=== PATIENT | female | born 1980 | race Caucasian/White ===

== ENCOUNTER 2016-07-05 05:37 | Inpatient (IN) | payer OTHER ==
[~2016-07-05 05:37] MED LIST: Citric Acid/Sodium Citrate Solution 30 ML Cup PO ONE; Lactated Ringers 1,000 ML IV SCH; Metoclopramide 10 MG/2 ML SDV IVPUSH ONE; Sodium Chloride 0.9% 10 ML Syringe FLUSH PRN; ceFAZolin 2 GM in Premix Bag 1 BAG IV ONE
[2016-07-05] MEDS ORDERED: Citric Acid/Sodium Citrate Solution 30 ML Cup ONE (06:43)
[2016-07-05] MEDS ORDERED: Metoclopramide 10 MG/2 ML SDV ONE (06:43)
[2016-07-05] MEDS ORDERED: Oxytocin 10 Units/1 ML SDV ONE (06:45)
[2016-07-05] MEDS ORDERED: ceFAZolin 1 GM Vial ONE ×2 (06:45)
[2016-07-05] MEDS ORDERED: Lactated Ringers 1,000 ML ONE (06:46)
[2016-07-05] MEDS ORDERED: Morphine PF 10 MG/10 ML SDV ONE (06:46)
[2016-07-05] MEDS ORDERED: Bupivacaine 0.5% 30 ML SDV ONE (06:56)
--- NOTE | 2016-07-05 07:05 | HP ---
DATE OF ADMISSION: 07/05/2016 ADMISSION DIAGNOSIS: A 39 and 4/7th week intrauterine , history of previous section x2 with desire for repeat section. HISTORY OF PRESENT ILLNESS: The patient is a 35-year-old, 7, para 6-0-0-6 white female, with an ALEXA of 07/08/2016 was admitted for elective section - repeat. The patient has a history of 2 previous sections done in 2012 and 2010 preceded by 4 vaginal deliveries. Her last baby was 9 pounds 6 ounces. She, at this time, wishes to proceed with elective repeat section. The procedure, risks, benefits, potential complications, and alternatives to care, including attempt at were discussed in detail with patient. She appears to understand and wishes to proceed. MATERIALS DIRECTOR HISTORY: 7, para 6-0-0-6 with all 6 deliveries being born at term. Ranged in the weight from 7 pounds 3 ounces up to 9 pounds 6 ounces. Last 2 were sections with section last one being delivered by for breech presentation and last being delivered by because of repeat. The patient had 2 ultrasounds with this , the first ultrasound done 12/05/2015, it was the one at 10 and 2/7th weeks, which set her ALEXA at 07/08/2016. Second ultrasound done 02/15/2016 was supported with first ultrasound dating. The patient declined flu shot and Tdap. She declined genetic testing. She plans to nurse. She has hypothyroidism and is on replacement therapy. COURSE: The patient's first visit was on 02/15/2016 at 20 weeks gestational age. She has made good fundal height growth during the course of the . Her weight gain was from pregravid weight of 264 and body mass index is 45.2, up to 275 for a 21-pound weight gain. Her vital signs were not stable throughout the course. Fundal height growth was normal for size and gestational age. heart rate was 136. LABORATORY TESTING: In shows blood to be O positive with negative antibody screen. Platelet count at first visit were 330,000. She is rubella immune. RPR is nonreactive. Hepatitis B and HIV assays were negative. Chlamydia and gonorrhea assays negative. Hemoglobin was 12.3 in second-trimester and platelets were 300,000. One-hour GTT was elevated. Group B strep screen was positive. ALLERGIES: Morphine, which causes hallucinations and itching. CURRENT MEDICATIONS: 1. Nature-Throid 48.75 mg tablets per day. 2. vitamins 1 daily. 3. B12 100 mcg per day. 4. Vitamin D liquid. PAST MEDICAL HISTORY: Vaginal delivery x4. PAST SURGICAL HISTORY: x2. FAMILY HISTORY: Positive for paternal grandfather with colon cancer. Half brother with beta thalassemia. Half sister with nephrectomy. Father with diabetes and hypertension. Paternal grandfather is positive for heart disease. SOCIAL HISTORY: Patient is . is Anselmo Spear. They live in [place], [place]. She denies any significant amounts of alcohol, drugs, tobacco. She does not work outside the home. REVIEW OF SYSTEMS: SKIN: Negative. LUNGS: clear. CARDIOVASCULAR: No problems. BREASTS: Changes of . ABDOMEN/GI: Negative. : Findings associated with . EXTREMITIES and MUSCULOSKELETAL: Negative. NEUROLOGICAL: Normal. PHYSICAL EXAMINATION: VITAL SIGNS: Height is 5 feet 3 inches, pre weight is 264. Weight on last evaluation in clinic was 275 for an 11-pound weight gain. GENERAL: The patient is a well-developed, well-nourished, massively obese white female, in no acute distress. She is alert oriented x3, appears her stated age. SKIN: Warm, dry, without lesions. HEENT: Neck and back within normal limits. CARDIOVASCULAR: Shows regular rate and rhythm without murmurs. BREASTS: Deferred. ABDOMEN: Protuberant with , fundal height 38 cm. : Cervical exam shows to be soft on last evaluation in clinic, 1 cm 50% effaced, -4 station mid position. At this time, baby is felt to possibly be transverse by Todd maneuvers. EXTREMITIES: Show trace edema. Otherwise unremarkable. ASSESSMENT: 1. Term intrauterine at 39 and 4/7th weeks gestational age - elective repeat section. 2. The patient plans to nurse. 3. Has been on vitamins throughout the . PLAN: 1. Revealed repeat lower uterine segment transverse section through Pfannenstiel skin incision under spinal block. Procedure, risks, benefits, alternatives including attempt at , all discussed with the patient. She appears to understand, wishes to proceed and signed the consent. 2. DVT prophylaxis with SCDs. 3. Infection prophylaxis with Ancef 2 g IV preop. 4. Passport Support Manager to be in attendance. SACHI /[phone]
--- NOTE | 2016-07-05 07:06 | PCM.PREANE ---
Preanesthetic Assessment - Anesthesia/Transfusion/Family Hx Anesthesia History: Prior Anesthesia Without Reaction Family History of Anesthesia Reaction: No Transfusion History: No Prior Transfusion(s) - Review of Systems General: No Symptoms Pulmonary: No Symptoms Cardiovascular: No Symptoms Gastrointestinal: No symptoms Neurological: No Symptoms Other: Reports: Diabetes (gestational diabetes), Thyroid Problems - Physical Assessment NPO Status Date: 07/04/16 NPO Status Time: 21:00 O2 Sat by Pulse Oximetry: 99 Respiratory Rate: 16 Vital Signs: Last Vital Signs Temp 36.7 C 07/05/16 06:00 Pulse 76 07/05/16 06:00 Resp 16 07/05/16 06:00 BP 119/76 07/05/16 06:00 Pulse Ox 99 07/05/16 06:00 Height: 1.6 m Weight: 123.831 kg ASA Class: 2 Mental Status: Alert & Oriented x3 Airway Class: Mallampati = 1 Dentition: Reports: Normal Dentition ROM/Head Extension: Full Lungs: Clear to auscultation, Normal respiratory effort Cardiovascular: Regular Rate, Regular Rhythm - Allergies Allergies/Adverse Reactions: Allergies Allergy/AdvReac Type Severity Reaction Status Date / Time morphine Allergy Hallucinati Verified 07/05/16 03:32 ons - Acknowledgements Anesthesia Type Planned: Spinal Pt an Appropriate Candidate for the Planned Anesthesia: Yes Alternatives and Risks of Anesthesia Discussed w Pt/Guardian: Yes Pt/Guardian Understands and Agrees with Anesthesia Plan: Yes PreAnesthesia Questionnaire HEENT History: Reports: None, Sinusitis (hx of sinus surgery 6 years ago) Cardiovascular History: Reports: None Respiratory History: Reports: None Gastrointestinal History: Reports: None Genitourinary History: Reports: None ASSOCIATE APPLICATION DEVELOPER History: Reports: () Musculoskeletal History: Reports: None Neurological History: Reports: None Psychiatric History: Reports: None, Other (see below) Other Psychiatric History: HX of depression with third child Endocrine/Metabolic History: Reports: Diabetes, gestational, Hypothyroidism, Obesity/BMI 30+ Hematologic History: Reports: None Immunologic History: Reports: None Oncologic (Cancer) History: Reports: None Dermatologic History: Reports: None - Infectious Disease History Infectious Disease History: Reports: None - Past Surgical History Head Surgeries/Procedures: Reports: None HEENT Surgical History: Reports: None Cardiovascular Surgical History: Reports: None Respiratory Surgical History: Reports: None GI Surgical History: Reports: None Female Surgical History: Reports: None, section (x2 without comp) Male Surgical History: Reports: None Endocrine Surgical History: Reports: None Neurological Surgical History: Reports: None Musculoskeletal Surgical History: Reports: None Oncologic Surgical History: Reports: None Dermatological Surgical History: Reports: None Other Surgical History Comment: sinus surgery without comp - Past Imaging History Past Imaging History: Reports: None - SUBSTANCE USE Smoking Status *Q: Never Smoker Second Hand Smoke Exposure: No Recreational Drug Use History: No - CURRENT (IN HOUSE) MEDS Current Meds: Current Medications Lactated Ringer's (Ringers, Lactated) 1,000 mls @ 125 mls/hr IV ASDIRECTED JOSÉ MIGUEL Last Admin: 07/05/16 06:23 Dose: 125 mls/hr Sodium Chloride (Saline Flush) 10 ml FLUSH ASDIRECTED PRN PRN Reason: Keep Vein Open Discontinued Medications Cefazolin Sodium (Ancef) Confirm Administered Dose 1 gm .ROUTE .STK-MED ONE Stop: 07/05/16 06:46 Cefazolin Sodium (Ancef) Confirm Administered Dose 1 gm .ROUTE .STK-MED ONE Stop: 07/05/16 06:46 Citric Acid/Sodium Citrate (Bicitra Solution) 30 ml PO ONETIME ONE Stop: 07/05/16 03:19 Last Admin: 07/05/16 06:53 Dose: 30 ml Citric Acid/Sodium Citrate (Bicitra Solution) Confirm Administered Dose 30 ml .ROUTE .STK-MED ONE Stop: 07/05/16 06:44 Cefazolin Sodium/Dextrose 2 gm (/ Premix) 50 mls @ 100 mls/hr IV ONETIME ONE Stop: 07/05/16 03:47 Lactated Ringer's (Ringers, Lactated) Confirm Administered Dose 1,000 mls @ as directed .ROUTE .STK-MED ONE Stop: 07/05/16 06:47 Metoclopramide HCl (Reglan) 10 mg IVPUSH ONETIME ONE Stop: 07/05/16 03:19 Last Admin: 07/05/16 06:54 Dose: 10 mg Metoclopramide HCl (Reglan) Confirm Administered Dose 10 mg .ROUTE .STK-MED ONE Stop: 07/05/16 06:44 Morphine Sulfate (Duramorph Pf) Confirm Administered Dose 10 mg .ROUTE .STK-MED ONE Stop: 07/05/16 06:47 Oxytocin (Pitocin) Confirm Administered Dose 10 unit .ROUTE .STK-MED ONE Stop: 07/05/16 06:46
[2016-07-05] MEDS ORDERED: ePHEDrine/Normal Saline 25 MG/5 ML Syringe ONE (08:26)
--- NOTE | 2016-07-05 08:39 | PCM.POSTAN ---
POST ANESTHESIA ASSESSMENT - MENTAL STATUS Mental Status: alert, oriented - VITAL SIGNS Pulse Rate: 80 SaO2: 96 Resp Rate: 18 Blood Pressure: 115/63 Temperature: 97.0 C - RESPIRATORY Respiratory Status: respiratory rate WNL, airway patent, O2 saturation stable, supplemental oxygen - CARDIOVASCULAR CV Status: pulse rate WNL, blood pressure stable - GASTROINTESTINAL GI Status: no symptoms - POST OP HYDRATION Hydration Status: adequate & stable
[2016-07-05] MEDS ORDERED: ePHEDrine 50 MG/ML SDV IVPUSH PRN ×2 (08:41→09:03)
[2016-07-05] MEDS ORDERED: Ondansetron 4 MG/2 ML SDV IVPUSH PRN (08:41)
[2016-07-05] MEDS ORDERED: THYROID PORK 48.75 MG PO SCH (09:00)
[2016-07-05] MEDS ORDERED: Ondansetron 4 MG/2 ML SDV IV PRN (09:03)
[2016-07-05] MEDS ORDERED: diphenhydrAMINE 50 MG/ML SDV IVPUSH PRN (09:03)
[2016-07-05] MEDS ORDERED: Dextrose 5%-Lactated Ringers 1,000 ML IV SCH (09:03)
[2016-07-05] MEDS ORDERED: Lanolin 100% Cream 7 GM Tube TOP PRN (09:03)
[2016-07-05] MEDS ORDERED: Naloxone 0.4 MG/ML SDV IVPUSH PRN (09:03)
[2016-07-05] MEDS ORDERED: Dextrose 5%-0.45% NaCl 1,000 ML IV SCH (09:03)
[2016-07-05] MEDS: Prenatal Multivitamin with Calcium/Folic Acid/Iron Tab PO SCH (09:34)
[2016-07-05] MEDS: Simethicone 80 MG Tab.Chew PO SCH ×4 (09:34→21:51)
[2016-07-05] MEDS: Ibuprofen 800 MG Tab PO SCH ×2 (09:34→17:34)
[2016-07-05] MEDS ORDERED: HYDROmorphone 0.5 MG/0.5 ML Syringe IVPUSH PRN (09:45)
[2016-07-05] MEDS ORDERED: fentaNYL 100 MCG/2 ML SDV IVPUSH PRN (09:45)
[2016-07-05] MEDS ORDERED: Meperidine PF 50 MG/ML Syringe IVPUSH PRN (09:45)
--- NOTE | 2016-07-05 09:49 | PCM48HPAN ---
Post Anesthesia Note - EVALUATION WITHIN 48HRS OF ANESTHETIC Vital Signs in Normal Range: Yes Patient Participated in Evaluation: Yes Respiratory Function Stable: Yes Airway Patent: Yes Cardiovascular Function Stable: Yes Hydration Status Stable: Yes Pain Control Satisfactory: Yes (block receeding ) Nausea and Vomiting Control Satisfactory: Yes Mental Status Recovered: Yes
--- NOTE | 2016-07-05 10:12 | PCM.OPNOTE ---
- General Post-Op/Procedure Note Date of Surgery/Procedure: 07/05/16 Operative Procedure(s): Repeat lower uterine segment transverse section Pfannenstiel skin incision Findings: Uterus tubes and ovaries were consistent with a normal term . Amniotic fluid was clear. Baby is in vertex presentation. Nuchal cord was found to be loosely around the neck x1. Cervix is 2 cm dilated which is felt to be adequate to allow egress of blood. Pre Op Diagnosis: 39 week intrauterine , history previous section with desire for repeat. Post-Op Diagnosis: Same with delivery of a viable 6 lbs. 12 oz. female with Apgars of 8 and 9. Anesthesia Technique: Epidural Other Anesthesia Type: Marcaine 0.5%-20 cc locally in the incision site Primary Surgeon: Joel Ward Secondary Surgeon: Joel Wilkerson Anesthesia Provider: Monica Pablo Fluid Replacement, Intraop: 2,300 (Crystal) Output, Urine Amount: 100 EBL in mLs: 500 Drain/Tube Comments:: Indwelling bladder catheter Complications: None Condition: Good Free Text/Narrative:: Intake & Output 07/04/16 07/05/16 07/05/16 22:59 06:59 14:59 Intake Total 500 Output Total 200 Balance 300 Surgery duration: 23 minutes baby-born at 0806 hours, incision time 0804 hours Procedure: Patient was transferred the room and placed in a sitting position. Spinal anesthesia was administered. After adequate anesthesia patient was placed in a supine position with a wedge under her right side to facilitate left lateral positioning. The patient was prepped and draped in usual fashion after Higgins catheter was placed. The anesthetic was checked and found to be adequate. Marcaine 0.5%-20 cc was infiltrated into the section incision site. The Pfannenstiel skin incision was then made carried down to skin subcutaneous and fascial layers. The fascia was then undermined superiorly and inferiorly to allow for adequate operating room. The recti muscles were midline and preperitoneal fat was bluntly dissected. Peritoneal cavity was entered longitudinally. The vesicouterine peritoneum was then incised transversely and bladder flap was developed. Myometrium was incised transversely to the level of the amniotic sac. This incision was extended bilaterally in a blunt fashion. The amniotic sac was then ruptured with resulting clear amniotic fluid. A hand is placed into the lower uterine segment and the baby's head was brought forth through the incision. The baby was completely delivered using with fundal pressure in a routine fashion. The nose and mouth were bulb suctioned. Baby's cord was clamped x2 cut and baby was handed off to attending orthotics assistant Dr. Porras. Placenta was expressed after cord blood was obtained. Uterus was then exteriorized to allow for easier closure. The cervix was assessed and found to be dilated adequately to allow egress of blood. The uterus was closed in 2 layers. The first layer a running locked suture of 0 Monocryl, the second layer a running locked vertical mattress suture of 0 Monocryl. Hemostasis confirmed at this time. Sponge, instrument, needle counts are correct. The uterus was returned to the abdominal cavity and lateral gutters were cleared of blood. Once again sponge, needle counts are correct. The anterior abdominal wall was closed with a #1 PDS suture from angle to angle. The subcutaneous area was found to be free of any bleeders. Subcutaneous scarring was taken down with cautery area and Skin was closed with a running subcuticular stitch of 3-0 Monocryl in a vertical mattress suture fashion using a Morgan needle. It was further approximated with Prineo skin mesh/glue. It should be noted that patient received 2 g of Ancef preoperatively for infection prophylaxis and had Pitocin infused after delivery of the placenta to facilitate uterine contraction. She also had sequential compression stockings in place for DVT prophylaxis.
[2016-07-05] MEDS: Acetaminophen/oxyCODONE 325-5 MG Tab PO PRN ×3 (11:23→22:42)
[2016-07-06] MEDS: Ibuprofen 800 MG Tab PO SCH ×3 (00:51→17:57)
[2016-07-06] MEDS: Acetaminophen/oxyCODONE 325-5 MG Tab PO PRN ×3 (06:06→20:11)
[2016-07-06] MEDS: THYROID PORK 48.75 MG PO SCH (06:08)
--- NOTE | 2016-07-06 08:25 | PCM.SN ---
- Free Text/Narrative Note: POD#1 Afebrile, no heavy vaginal bleeding, incision normal, no leg cramping or pain.
[2016-07-06] MEDS: Simethicone 80 MG Tab.Chew PO SCH ×3 (09:13→17:56)
[2016-07-06] MEDS: Prenatal Multivitamin with Calcium/Folic Acid/Iron Tab PO SCH (09:13)
[2016-07-06] MEDS: Docusate Sodium 100 MG Cap PO PRN (09:16)
--- NOTE | 2016-07-06 14:02 | PCM48HPAN ---
Post Anesthesia Note - EVALUATION WITHIN 48HRS OF ANESTHETIC Vital Signs in Normal Range: Yes Patient Participated in Evaluation: Yes Respiratory Function Stable: Yes Airway Patent: Yes Cardiovascular Function Stable: Yes Hydration Status Stable: Yes Pain Control Satisfactory: Yes Nausea and Vomiting Control Satisfactory: Yes Mental Status Recovered: Yes
[2016-07-07] MEDS: Simethicone 80 MG Tab.Chew PO SCH ×3 (02:53→11:57)
[2016-07-07] MEDS: Ibuprofen 800 MG Tab PO SCH ×2 (02:54→09:17)
[2016-07-07] MEDS: Acetaminophen/oxyCODONE 325-5 MG Tab PO PRN ×2 (02:57→11:57)
[2016-07-07] MEDS: THYROID PORK 48.75 MG PO SCH (06:01)
[2016-07-07] MEDS: Docusate Sodium 100 MG Cap PO PRN (06:01)
[2016-07-07] MEDS: Prenatal Multivitamin with Calcium/Folic Acid/Iron Tab PO SCH (09:17)
--- NOTE | 2016-07-07 09:56 | PCM.DCSUM1 ---
Discharge Summary - Hospital Course Free Text/Narrative:: [facility] Post-Op/Procedure Note Patient Name: PETTY LLOYD Date of : 80 Patient Status: Inpatient Attending Provider: Joel Ward Date: 07/05/16 10:02 Initialization Date: 07/05/16 10:02 - General Post-Op/Procedure Note Date of Surgery/Procedure: 07/05/16 Operative Procedure(s): Repeat lower uterine segment transverse section Pfannenstiel skin incision Findings: Uterus tubes and ovaries were consistent with a normal term . Amniotic fluid was clear. Baby is in vertex presentation. Nuchal cord was found to be loosely around the neck x1. Cervix is 2 cm dilated which is felt to be adequate to allow egress of blood. Pre Op Diagnosis: 39 week intrauterine , history previous section with desire for repeat. Post-Op Diagnosis: Same with delivery of a viable 6 lbs. 12 oz. female with Apgars of 8 and 9. Anesthesia Technique: Epidural Other Anesthesia Type: Marcaine 0.5%-20 cc locally in the incision site Primary Surgeon: Joel Ward Secondary Surgeon: Joel Wilkerson Anesthesia Provider: Monica Pablo Fluid Replacement, Intraop: 2,300 (Crystal) Output, Urine Amount: 100 EBL in mLs: 500 Drain/Tube Comments:: Indwelling bladder catheter Complications: None Condition: Good Free Text/Narrative:: Intake & Output 07/04/16 07/05/16 07/05/16 22:59 06:59 14:59 Intake Total 500 Output Total 200 Balance 300 Surgery duration: 23 minutes baby-born at 0806 hours, incision time 0804 hours Procedure: Patient was transferred the room and placed in a sitting position. Spinal anesthesia was administered. After adequate anesthesia patient was placed in a supine position with a wedge under her right side to facilitate left lateral positioning. The patient was prepped and draped in usual fashion after Higgins catheter was placed. The anesthetic was checked and found to be adequate. Marcaine 0.5%-20 cc was infiltrated into the section incision site. The Pfannenstiel skin incision was then made carried down to skin subcutaneous and fascial layers. The fascia was then undermined superiorly and inferiorly to allow for adequate operating room. The recti muscles were midline and preperitoneal fat was bluntly dissected. Peritoneal cavity was entered longitudinally. The vesicouterine peritoneum was then incised transversely and bladder flap was developed. Myometrium was incised transversely to the level of the amniotic sac. This incision was extended bilaterally in a blunt fashion. The amniotic sac was then ruptured with resulting clear amniotic fluid. A hand is placed into the lower uterine segment and the baby's head was brought forth through the incision. The baby was completely delivered using with fundal pressure in a routine fashion. The nose and mouth were bulb suctioned. Baby's cord was clamped x2 cut and baby was handed off to attending casting assistant Dr. Porras. Placenta was expressed after cord blood was obtained. Uterus was then exteriorized to allow for easier closure. The cervix was assessed and found to be dilated adequately to allow egress of blood. The uterus was closed in 2 layers. The first layer a running locked suture of 0 Monocryl, the second layer a running locked vertical mattress suture of 0 Monocryl. Hemostasis confirmed at this time. Sponge, instrument, needle counts are correct. The uterus was returned to the abdominal cavity and lateral gutters were cleared of blood. Once again sponge, needle counts are correct. The anterior abdominal wall was closed with a #1 PDS suture from angle to angle. The subcutaneous area was found to be free of any bleeders. Subcutaneous scarring was taken down with cautery area and Skin was closed with a running subcuticular stitch of 3-0 Monocryl in a vertical mattress suture fashion using a Morgan needle. It was further approximated with Prineo skin mesh/glue. It should be noted that patient received 2 g of Ancef preoperatively for infection prophylaxis and had Pitocin infused after delivery of the placenta to facilitate uterine contraction. She also had sequential compression stockings in place for DVT prophylaxis. HPI Initial Comments: [facility] Post-Op/Procedure Note Patient Name: PETTY LLOYD Date of : 80 Patient Status: Inpatient Attending Provider: Joel Ward Date: 07/05/16 10:02 Initialization Date: 07/05/16 10:02 - General Post-Op/Procedure Note Date of Surgery/Procedure: 07/05/16 Operative Procedure(s): Repeat lower uterine segment transverse section Pfannenstiel skin incision Findings: Uterus tubes and ovaries were consistent with a normal term . Amniotic fluid was clear. Baby is in vertex presentation. Nuchal cord was found to be loosely around the neck x1. Cervix is 2 cm dilated which is felt to be adequate to allow egress of blood. Pre Op Diagnosis: 39 week intrauterine , history previous section with desire for repeat. Post-Op Diagnosis: Same with delivery of a viable 6 lbs. 12 oz. female infant with Apgars of 8 and 9. Anesthesia Technique: Epidural Other Anesthesia Type: Marcaine 0.5%-20 cc locally in the incision site Primary Surgeon: Jeol Ward Secondary Surgeon: Joel Wilkerson Anesthesia Provider: Monica Pablo Fluid Replacement, Intraop: 2,300 (Crystal) Output, Urine Amount: 100 EBL in mLs: 500 Drain/Tube Comments:: Indwelling bladder catheter Complications: None Condition: Good Free Text/Narrative:: Intake & Output 07/04/16 07/05/16 07/05/16 22:59 06:59 14:59 Intake Total 500 Output Total 200 Balance 300 Surgery duration: 23 minutes baby-born at 0806 hours, incision time 0804 hours Procedure: Patient was transferred the room and placed in a sitting position. Spinal anesthesia was administered. After adequate anesthesia patient was placed in a supine position with a wedge under her right side to facilitate left lateral positioning. The patient was prepped and draped in usual fashion after Higgins catheter was placed. The anesthetic was checked and found to be adequate. Marcaine 0.5%-20 cc was infiltrated into the section incision site. The Pfannenstiel skin incision was then made carried down to skin subcutaneous and fascial layers. The fascia was then undermined superiorly and inferiorly to allow for adequate operating room. The recti muscles were midline and preperitoneal fat was bluntly dissected. Peritoneal cavity was entered longitudinally. The vesicouterine peritoneum was then incised transversely and bladder flap was developed. Myometrium was incised transversely to the level of the amniotic sac. This incision was extended bilaterally in a blunt fashion. The amniotic sac was then ruptured with resulting clear amniotic fluid. A hand is placed into the lower uterine segment and the baby's head was brought forth through the incision. The baby was completely delivered using with fundal pressure in a routine fashion. The nose and mouth were bulb suctioned. Baby's cord was clamped x2 cut and baby was handed off to attending casting assistant Dr. Porras. Placenta was expressed after cord blood was obtained. Uterus was then exteriorized to allow for easier closure. The cervix was assessed and found to be dilated adequately to allow egress of blood. The uterus was closed in 2 layers. The first layer a running locked suture of 0 Monocryl, the second layer a running locked vertical mattress suture of 0 Monocryl. Hemostasis confirmed at this time. Sponge, instrument, needle counts are correct. The uterus was returned to the abdominal cavity and lateral gutters were cleared of blood. Once again sponge, needle counts are correct. The anterior abdominal wall was closed with a #1 PDS suture from angle to angle. The subcutaneous area was found to be free of any bleeders. Subcutaneous scarring was taken down with cautery area and Skin was closed with a running subcuticular stitch of 3-0 Monocryl in a vertical mattress suture fashion using a Morgan needle. It was further approximated with Prineo skin mesh/glue. It should be noted that patient received 2 g of Ancef preoperatively for infection prophylaxis and had Pitocin infused after delivery of the placenta to facilitate uterine contraction. She also had sequential compression stockings in place for DVT prophylaxis. Brief History: [facility] . Post-Op/Procedure Note. [id number]. Date of : Patient Status: Inpatient. Attending Provider: Joel Ward FAccount Number: [id number]. Date: 07/05/16 10:02Initialization Date: 07/05/16 10:02. - General Post-Op/Procedure Note. Date of Surgery/Procedure: 07/05/16. Operative Procedure(s): Repeat lower uterine segment transverse section Pfannenstiel skin incision. Findings: Uterus tubes and ovaries were consistent with a normal term . Amniotic fluid was clear. Baby is in vertex presentation. Nuchal cord was found to be loosely around the neck x1. Cervix is 2 cm dilated which is felt to be adequate to allow egress of blood. Pre Op Diagnosis: 39 week intrauterine , history previous section with desire for repeat. Post-Op Diagnosis: Same with delivery of a viable 6 lbs. 12 oz. female with Apgars of 8 and 9. Anesthesia Technique : Epidural. Other Anesthesia Type: Marcaine 0.5%-20 cc locally in the incision site. Primary Surgeon: Joel Ward. Secondary Surgeon: Joel Wilkerson. Anesthesia Provider: Monica Pablo. Fluid Replacement, Intraop: 2,300 (Crystal) . Output, Urine Amount: 100. EBL in mLs: 500. Drain/Tube Comments:: Indwelling bladder catheter. Complications: None. Condition: Good. Free Text/ Narrative:: Intake & Output. 07/05/1703/. [id number]. Intake [id number]. Output [id number]. [id number]. Surgery duration: 23 minutes baby-born at 0806 hours, incision time 0804 hours. Procedure: Patient was transferred the room and placed in a sitting position. Spinal anesthesia was administered. After adequate anesthesia patient was placed in a supine position with a wedge under her right side to facilitate left lateral positioning. The patient was prepped and draped in usual fashion after Higgins catheter was placed. The anesthetic was checked and found to be adequate. Marcaine 0.5%-20 cc was infiltrated into the section incision site. The Pfannenstiel skin incision was then made carried down to skin subcutaneous and fascial layers. The fascia was then undermined superiorly and inferiorly to allow for adequate operating room. The recti muscles were midline and preperitoneal fat was bluntly dissected. Peritoneal cavity was entered longitudinally. The vesicouterine peritoneum was then incised transversely and bladder flap was developed. Myometrium was incised transversely to the level of the amniotic sac. This incision was extended bilaterally in a blunt fashion. The amniotic sac was then ruptured with resulting clear amniotic fluid. A hand is placed into the lower uterine segment and the baby's head was brought forth through the incision. The baby was completely delivered using with fundal pressure in a routine fashion. The nose and mouth were bulb suctioned. Baby's cord was clamped x2 cut and baby was handed off to attending casting assistant Dr. Porras. Placenta was expressed after cord blood was obtained. Uterus was then exteriorized to allow for easier closure. The cervix was assessed and found to be dilated adequately to allow egress of blood. The uterus was closed in 2 layers. The first layer a running locked suture of 0 Monocryl, the second layer a running locked vertical mattress suture of 0 Monocryl. Hemostasis confirmed at this time. Sponge, instrument, needle counts are correct. The uterus was returned to the abdominal cavity and lateral gutters were cleared of blood. Once again sponge, needle counts are correct. The anterior abdominal wall was closed with a #1 PDS suture from angle to angle. The subcutaneous area was found to be free of any bleeders. Subcutaneous scarring was taken down with cautery area and Skin was closed with a running subcuticular stitch of 3-0 Monocryl in a vertical mattress suture fashion using a Morgan needle. It was further approximated with Prineo skin mesh/glue. It should be noted that patient received 2 g of Ancef preoperatively for infection prophylaxis and had Pitocin infused after delivery of the placenta to facilitate uterine contraction. She also had sequential compression stockings in place for DVT prophylaxis. - Discharge Data Discharge Date: 07/07/16 Discharge Disposition: Home, Self-Care 01 Condition: Good - Discharge Diagnosis/Problem(s) (1) 39 weeks gestation of SNOMED Code(s): 72379955 ICD Code: Z3A.39 - 39 WEEKS GESTATION OF Status: Acute Current Visit: Yes (2) delivery, delivered, current hospitalization SNOMED Code(s): 215403065 ICD Code: O82 - ENCOUNTER FOR DELIVERY WITHOUT INDICATION Status: Acute Current Visit: Yes - Patient Summary/Data Operative Procedure(s) Performed: Repeat lower uterine segment transverse section Pfannenstiel skin incision Complications: none Consults: none Hospital Course: uneventful - Patient Instructions Diet: Heart Healthy Diet Driving: Do Not Drive (48 hrs) Showering/Bathing: May Shower, No Tub Bathing/Swimming (x6 weeks) Wound/Incision Care: Keep Operative Site/Wound Site Clean and Dry Notify Provider of: Fever, Increased Pain, Swelling and Redness, Drainage, Nausea and/or Vomiting - Discharge Plan Prescriptions/Med Rec: Acetaminophen/oxyCODONE [Percocet 325-5 MG] 1 tab PO Q6H PRN #30 tablet PRN Reason: Pain Ibuprofen [IJD: Ibuprofen] 600 mg PO Q6H #50 tablet Home Medications: Home Meds B12/Levomefolate Calcium/B-6 [Folbic Rf Tablet] 1 each PO DAILY 07/05/16 [ History] Cholecalciferol (Vitamin D3) [Vitamin D] 10,000 unit PO DAILY 07/05/16 [History] Vit #108/Iron/FA [ One Tablet] 1 each PO DAILY 07/05/16 [ History] Thyroid,Pork [Nature-Throid] 48.75 mg PO DAILY 07/05/16 [History] Acetaminophen/oxyCODONE [Percocet 325-5 MG] 1 tab PO Q6H PRN #30 tablet [Rx] Ibuprofen [IJD: Ibuprofen] 600 mg PO Q6H #50 tablet 07/07/16 [Rx] Referrals: Joel Ward MD [Physician] - (4 weeks) - Discharge Summary/Plan Comment DC Time >30 min.: No - Patient Data Vitals - Most Recent: Last Vital Signs Temp 98.2 F 07/07/16 03:02 Pulse 92 07/07/16 03:02 Resp 16 07/07/16 03:02 BP 124/84 07/07/16 03:02 Pulse Ox 97 07/07/16 03:02 Weight - Most Recent: 273 lb Med Orders - Current: Current Medications Diphenhydramine HCl (Benadryl) 25 mg IVPUSH Q6H PRN PRN Reason: Itching or Nausea Docusate Sodium (Colace) 100 mg PO Q12H PRN PRN Reason: Constipation Last Admin: 07/07/16 06:01 Dose: 100 mg Emollient Ointment (Lansinoh Hpa) 0 gm TOP ASDIRECTED PRN PRN Reason: Sore Nipples Last Admin: 07/06/16 18:00 Dose: 1 applic Ephedrine Sulfate (Ephedrine Sulfate) 5 mg IVPUSH SEECOMMENT PRN PRN Reason: Other Dextrose/Sodium Chloride (Dextrose 5%-1/2 Ns) 1,000 mls @ 125 mls/hr IV ASDIRECTED JOSÉ MIGUEL Last Admin: 07/05/16 20:21 Dose: 125 mls/hr Ibuprofen (Motrin) 800 mg PO Q8H JOSÉ MIGUEL Last Admin: 07/07/16 09:17 Dose: 800 mg Naloxone HCl (Narcan) 0.1 mg IVPUSH SEECOMMENT PRN PRN Reason: Respiratory Depression Ondansetron HCl (Zofran) 4 mg IV Q4H PRN PRN Reason: Nausea/Vomiting Oxycodone/Acetaminophen (Percocet 325-5 Mg) 2 tab PO Q4H PRN PRN Reason: Pain (moderate 4-6) Last Admin: 07/07/16 02:57 Dose: 2 tab Thyroid,Pork [Nature (-Throid] 48.75 Mg) 0 each PO ACBREAKFAST [facility] Last Admin: 07/07/16 06:01 Dose: 1 each Prenat Multivit/Aligner/Iron/Folic Ac ( Plus Iron) 1 each PO DAILY [facility] Last Admin: 07/07/16 09:17 Dose: 1 each Simethicone (Simethicone) 80 mg PO PCBED [facility] Last Admin: 07/07/16 09:17 Dose: 80 mg Discontinued Medications Bupivacaine HCl (Marcaine 0.5%) Confirm Administered Dose 30 ml .ROUTE .STK-MED ONE Stop: 07/05/16 06:57 Last Admin: 07/05/16 08:02 Dose: 20 ml Cefazolin Sodium (Ancef) Confirm Administered Dose 1 gm .ROUTE .STK-MED ONE Stop: 07/05/16 06:46 Cefazolin Sodium (Ancef) Confirm Administered Dose 1 gm .ROUTE .STK-MED ONE Stop: 07/05/16 06:46 Citric Acid/Sodium Citrate (Bicitra Solution) 30 ml PO ONETIME ONE Stop: 07/05/16 03:19 Last Admin: 07/05/16 06:53 Dose: 30 ml Citric Acid/Sodium Citrate (Bicitra Solution) Confirm Administered Dose 30 ml .ROUTE .STK-MED ONE Stop: 07/05/16 06:44 Last Admin: 07/05/16 07:01 Dose: Not Given Ephedrine Sulfate (Ephedrine In Ns) Confirm Administered Dose 25 mg .ROUTE .STK- MED ONE Stop: 07/05/16 08:27 Ephedrine Sulfate (Ephedrine Sulfate) 5 mg IVPUSH ASDIRECTED PRN PRN Reason: Hypotension Stop: 07/05/16 16:00 Fentanyl (Sublimaze) 50 mcg IVPUSH Q5M PRN PRN Reason: Pain Stop: 07/05/16 10:01 Hydromorphone HCl (Dilaudid) 0.5 mg IVPUSH Q15M PRN PRN Reason: severe pain Stop: 07/05/16 10:01 Last Admin: 07/05/16 10:05 Dose: 0.5 mg Lactated Ringer's (Ringers, Lactated) 1,000 mls @ 125 mls/hr IV ASDIRECTED JOSÉ MIGUEL Last Admin: 07/05/16 06:23 Dose: 125 mls/hr Cefazolin Sodium/Dextrose 2 gm (/ Premix) 50 mls @ 100 mls/hr IV ONETIME ONE Stop: 07/05/16 03:47 Last Admin: 07/06/16 18:16 Dose: Not Given Lactated Ringer's (Ringers, Lactated) Confirm Administered Dose 1,000 mls @ as directed .ROUTE .STK-MED ONE Stop: 07/05/16 06:47 Dextrose/Lactated Ringer's (Dextrose 5%-Lactated Ringers) 1,000 mls @ 125 mls/ hr IV ASDIRECTED JOSÉ MIGUEL Stop: 07/05/16 17:02 Last Admin: 07/05/16 11:05 Dose: 125 mls/hr Meperidine HCl (Demerol) 12.5 mg IVPUSH ASDIRECTED PRN PRN Reason: Shivering Stop: 07/06/16 09:46 Metoclopramide HCl (Reglan) 10 mg IVPUSH ONETIME ONE Stop: 07/05/16 03:19 Last Admin: 07/05/16 06:54 Dose: 10 mg Metoclopramide HCl (Reglan) Confirm Administered Dose 10 mg .ROUTE .STK-MED ONE Stop: 07/05/16 06:44 Last Admin: 07/05/16 07:01 Dose: Not Given Morphine Sulfate (Duramorph Pf) Confirm Administered Dose 10 mg .ROUTE .STK-MED ONE Stop: 07/05/16 06:47 Ondansetron HCl (Zofran) 4 mg IVPUSH ONETIME PRN PRN Reason: Nausea/Vomiting Stop: 07/05/16 18:00 Oxytocin (Pitocin) Confirm Administered Dose 10 unit .ROUTE .STK-MED ONE Stop: 07/05/16 06:46 Thyroid,Pork [Nature (-Throid] 48.75 Mg) 0 each PO DAILY JOSÉ MIGUEL Last Admin: 07/05/16 09:44 Dose: Not Given Sodium Chloride (Saline Flush) 10 ml FLUSH ASDIRECTED PRN PRN Reason: Keep Vein Open *Q Meaningful Use (DIS) - VTE *Q VTE Criteria *Q: - Stroke *Q Stroke Criteria *Q: - AMI *Q AMI Criteria *Q:
[2016-07-07 12:57] VITALS: BP 108/69
== END 2016-07-07 13:15 | disposition home or self-care (01) | DRG 766 ==
LOC: JD.OB 05:37 → UNDOADMIN 05:37
PROVIDERS: ADMIT Obstetrics & Gynecology; ATTEND Obstetrics & Gynecology
PROC: 10D00Z1 Extraction of Products of Conception, Low, Open Approach (ICD-10-PCS; principal; 2016-07-05)
DX: O34.211 Maternal care for low transverse scar from previous cesarean delivery (principal); N85.8 Other specified noninflammatory disorders of uterus; O99.824 Streptococcus B carrier state complicating childbirth; O69.81X0 Labor and delivery complicated by cord around neck, without compression, not applicable or unspecified; Z3A.40 40 weeks gestation of pregnancy; Z37.0 Single live birth
CPT/HCPCS: 01961; 36415; 85025; A9270-GY; J0690; J1170; J2270; J2590; J2765; J7042; J7050; J7120

== ENCOUNTER 2018-11-13 05:27 | Inpatient (IN) | payer BC ==
[2018-11-13] MEDS: Lactated Ringers 1,000 ML IV SCH ×2 (06:00→06:59)
[2018-11-13] MEDS ORDERED: Metoclopramide 10 MG/2 ML SDV IVPUSH ONE (06:19)
[2018-11-13] MEDS ORDERED: Sodium Chloride 0.9% 10 ML Syringe FLUSH PRN (06:19)
[2018-11-13] MEDS ORDERED: ceFAZolin 2 GM in Premix Bag 1 BAG IV ONE (06:19)
[2018-11-13] MEDS ORDERED: Nalbuphine 10 MG/1 ML Vial IVPUSH PRN (06:19)
[2018-11-13] MEDS ORDERED: Citric Acid/Sodium Citrate Solution 30 ML Cup PO ONE (06:19)
[2018-11-13] MEDS ORDERED: ceFAZolin 1 GM in Premix Bag 1 BAG IV ONE (06:19)
[2018-11-13] MEDS ORDERED: Oxytocin/Lactated Ringers 10 UNIT/1,000 ML BAG IV SCH (06:30)
[2018-11-13] MEDS ORDERED: Bupivacaine 0.5% 30 ML SDV ONE (07:15)
--- NOTE | 2018-11-13 08:00 | PCM.PREANE ---
Preanesthetic Assessment - Anesthesia/Transfusion/Family Hx Anesthesia History: Prior Anesthesia Without Reaction Family History of Anesthesia Reaction: No Transfusion History: No Prior Transfusion(s) - Review of Systems General: No Symptoms, Other (morbid obesity) Pulmonary: No Symptoms Cardiovascular: No Symptoms Gastrointestinal: No Symptoms Neurological: No Symptoms Other: Reports: Diabetes (gestational, controlled with diet), Thyroid Problems ( on replacement) - Physical Assessment NPO Status Date: 11/12/18 NPO Status Time: 22:30 Vital Signs: Last Vital Signs Temp 36.7 C 11/13/18 06:19 Pulse Resp BP Pulse Ox Height: 1.6 m Weight: 130.181 kg ASA Class: 3 Mental Status: Alert & Oriented x3 Airway Class: Mallampati = 2 Dentition: Reports: Normal Dentition Thyro-Mental Finger Breadths: 3 Mouth Opening Finger Breadths: 3 ROM/Head Extension: Full Lungs: Clear to Auscultation, Normal Respiratory Effort Cardiovascular: Regular Rate, Regular Rhythm - Lab Values: Laboratory Last Values WBC 7.17 K/mm3 (3.98-10.04) 11/13/18 06:30 RBC 4.02 M/mm3 (3.98-5.22) 11/13/18 06:30 Hgb 11.5 gm/L (11.2-15.7) 11/13/18 06:30 Hct 35.5 % (34.1-44.9) 11/13/18 06:30 MCV 88.3 fl (79.4-94.8) D 11/13/18 06:30 MCH 28.6 pg (25.6-32.2) 11/13/18 06:30 MCHC 32.4 g/dl (32.2-35.5) 11/13/18 06:30 RDW Std Deviation 42.2 fL (36.4-46.3) 11/13/18 06:30 Plt Count 320 K/mm3 (182-369) D 11/13/18 06:30 MPV 9.1 fl (9.4-12.3) L 11/13/18 06:30 Neut % (Auto) 70.5 % (34.0-71.1) 11/13/18 06:30 Lymph % (Auto) 19.1 % (19.3-51.7) L 11/13/18 06:30 Emmons % (Auto) 9.1 % (4.7-12.5) 11/13/18 06:30 Eos % (Auto) 0.8 (0.7-5.8) 11/13/18 06:30 Baso % (Auto) 0.1 % (0.1-1.2) 11/13/18 06:30 Neut # (Auto) 5.05 K/mm3 (1.56-6.13) 11/13/18 06:30 Lymph # (Auto) 1.37 K/mm3 (1.18-3.74) 11/13/18 06:30 Emmons # (Auto) 0.65 K/mm3 (0.24-0.36) H 11/13/18 06:30 Eos # (Auto) 0.06 K/mm3 (0.04-0.36) 11/13/18 06:30 Baso # (Auto) 0.01 K/mm3 (0.01-0.08) 11/13/18 06:30 - Allergies Allergies/Adverse Reactions: Allergies Allergy/AdvReac Type Severity Reaction Status Date / Time kiwi Allergy Hives Verified 11/13/18 06:19 morphine Allergy Hallucinati Verified 11/13/18 06:19 ons - Blood Blood Available: No Product(s) Available: None - Anesthesia Plan Pre-Op Medication Ordered: None - Acknowledgements Anesthesia Type Planned: Spinal Pt an Appropriate Candidate for the Planned Anesthesia: Yes Alternatives and Risks of Anesthesia Discussed w Pt/Guardian: Yes Pt/Guardian Understands and Agrees with Anesthesia Plan: Yes PreAnesthesia Questionnaire HEENT History: Reports: None, Sinusitis (hx of sinus surgery 6 years ago) Cardiovascular History: Reports: None Respiratory History: Reports: None Gastrointestinal History: Reports: None Genitourinary History: Reports: None CLINICAL RESEARCH ASSISTANT History: Reports: () Musculoskeletal History: Reports: None Neurological History: Reports: None Psychiatric History: Reports: None, Other (See Below) Other Psychiatric History: HX of depression with third child Endocrine/Metabolic History: Reports: Diabetes, Gestational, Hypothyroidism, Obesity/BMI 30+ Hematologic History: Reports: None Immunologic History: Reports: None Oncologic (Cancer) History: Reports: None Dermatologic History: Reports: None - Infectious Disease History Infectious Disease History: Reports: None - Past Surgical History Female Surgical History: Reports: None, Section - Past Imaging History Past Imaging History: Reports: None - HOME MEDS Home Medications: Home Meds B12/Levomefolate Calcium/B-6 [Folbic Rf Tablet] 1 each PO DAILY 07/05/16 [ History] Cholecalciferol (Vitamin D3) [Vitamin D] 10,000 unit PO DAILY 07/05/16 [History] Mv-Mn/Iron/FA/Herbal/Digestive [ One Tablet] 1 each PO DAILY 07/05/16 [ History] Thyroid,Pork [Nature-Throid] 48.75 mg PO DAILY 07/05/16 [History] Acetaminophen/oxyCODONE [Percocet 325-5 MG] 1 tab PO Q6H PRN #30 tablet [Rx] Ibuprofen [IJD: Ibuprofen] 600 mg PO Q6H #50 tablet 07/07/16 [Rx] - CURRENT (IN HOUSE) MEDS Current Meds: Current Medications Lactated Ringer's (Ringers, Lactated) 1,000 mls @ 125 mls/hr IV ASDIRECTED [facility] Last Admin: 11/13/18 06:59 Dose: 125 mls/hr Oxytocin/Lactated Ringer's (Pitocin In Lr 10 Units/1,000 Ml) 10 unit in 1,000 mls @ 100 mls/hr IV ASDIRECTED [facility] Nalbuphine HCl (Nubain) 10 mg IVPUSH Q2H PRN PRN Reason: Pain Sodium Chloride (Saline Flush) 10 ml FLUSH ASDIRECTED PRN PRN Reason: Keep Vein Open Discontinued Medications Bupivacaine HCl (Marcaine 0.5%) Confirm Administered Dose 30 ml .ROUTE .STK-MED ONE Stop: 11/13/18 07:16 Citric Acid/Sodium Citrate (Bicitra Solution) 30 ml PO ONETIME ONE Stop: 11/13/18 06:20 Last Admin: 11/13/18 07:16 Dose: 30 ml Cefazolin Sodium/Dextrose 1 gm (/ Premix) 50 mls @ 100 mls/hr IV ONETIME ONE Stop: 11/13/18 06:48 Cefazolin Sodium/Dextrose 2 gm (/ Premix) 50 mls @ 100 mls/hr IV ONETIME ONE Stop: 11/13/18 06:48 Metoclopramide HCl (Reglan) 10 mg IVPUSH ONETIME ONE Stop: 11/13/18 06:20 Last Admin: 11/13/18 07:16 Dose: 10 mg
[2018-11-13] MEDS ORDERED: ceFAZolin 1 GM Vial ONE (08:10)
[2018-11-13] MEDS ORDERED: Phenylephrine/Normal Saline 100 MCG/ML 10 ML Syringe ONE ×2 (08:35→08:49)
[2018-11-13] MEDS ORDERED: Ondansetron 4 MG/2 ML SDV ONE (08:49)
[2018-11-13] MEDS ORDERED: Ketorolac 30 MG/ML SDV ONE (08:49)
[2018-11-13] MEDS ORDERED: Lactated Ringers 1,000 ML ONE ×2 (08:49)
[2018-11-13] MEDS ORDERED: ePHEDrine/Normal Saline 25 MG/5 ML Syringe ONE (09:13)
--- NOTE | 2018-11-13 09:37 | PCM.POSTAN ---
POST ANESTHESIA ASSESSMENT - MENTAL STATUS Mental Status: Alert, Oriented - VITAL SIGNS Vital Signs: Last Vital Signs Temp 36.7 C 11/13/18 06:19 Pulse 87 11/13/18 06:02 Resp 14 11/13/18 06:02 BP 131/77 11/13/18 06:02 Pulse Ox 97 11/13/18 06:02 - RESPIRATORY Respiratory Status: Respiratory Rate WNL, Airway Patent - CARDIOVASCULAR CV Status: Pulse Rate WNL, Blood Pressure Stable - GASTROINTESTINAL GI Status: No Symptoms - PAIN Pain Score: 0 - POST OP HYDRATION Hydration Status: Adequate & Stable
[2018-11-13] MEDS ORDERED: Ondansetron 4 MG/2 ML SDV IVPUSH PRN (09:38)
[2018-11-13] MEDS ORDERED: diphenhydrAMINE 50 MG/ML SDV IVPUSH PRN ×2 (09:38→11:24)
--- NOTE | 2018-11-13 10:14 | PCM.OPNOTE ---
- General Post-Op/Procedure Note Date of Surgery/Procedure: 11/13/18 Operative Procedure(s): Repeat section Findings: Viable female at 09 100 weight 8 lbs. 13 oz. Apgars 7/9. No significant scarring and normal lower uterine segment Pre Op Diagnosis: Prior desires repeat Post-Op Diagnosis: Same Anesthesia Technique: Spinal Primary Surgeon: Christine Main Anesthesia Provider: Kirstie Palomo Body Design Checker: Sheri Solorzano Body Design Checker: Shaila Jones Reason Body Design Checker Was Necessary: retraction, patient safety. Fluid Replacement, Intraop: 1,500 Output, Urine Amount: 70 EBL in mLs: 1,000 Complications: None Condition: Good Free Text/Narrative:: Intake & Output 11/12/18 11/13/18 11/13/18 22:59 06:59 14:59 Output Total 70 Balance -70 The patient was taken to the operating room where spinal anesthesia was dosed to surgical levels without difficulty. The patient was prepped and draped in the usual sterile fashion with Traxi retractor in the dorsal supine position with a leftward tilt. A Pfannenstiel skin incision was made with the scalpel and carried through to the underlying layer of fascia. The fascia was incised in the midline and extended laterally using Madrigal scissors. Estephania clamps were used to elevate the superior aspect of the fascial incision, which was elevated , and the underlying rectus muscles were dissected off bluntly and using Madrigal scissors. Attention was then turned to the inferior aspect of the fascial incision, which in similar fashion was grasped with Estephania clamps, elevated, and the underlying rectus muscles were dissected off bluntly and using the madrigal. The rectus muscles were dissected in the midline. The peritoneum was entered bluntly; this incision was extended superiorly and inferiorly with good visualization of the bladder. The bladder blade was inserted. The vesicouterine peritoneum was identified and entered sharply using Metzenbaum scissors. This incision was extended laterally and the bladder flap was created digitally. The bladder blade was reinserted. The lower uterine segment was incised in a transverse fashion using the scalpel and with digital traction. Clear fluid was noted. The infant was subsequently delivered by flexing the head to the incision. Body and shoulders followed without difficulty. The cord was clamped and cut. The infant was subsequently handed to the awaiting architectural engineer whose presence had been requested.. The placenta was delivered spontaneously intact with a three-vessel cord noted. The uterus was exteriorized and cleared of all clots and debris. The uterine incision was repaired in 2 layers using 0 monocryl. Hemostasis was visualized. Hemostasis was visualized bilaterally. The uterus was returned to the abdomen. The uterine incision was reexamined and it was noted to be hemostatic. The pelvis was copiously irrigated. The fascia was closed with looped 1 PDS suture, and the skin was closed with 3-0 monocryl. Sponge, lap, and instrument counts were correct x2. The patient was stable at the completion of the procedure and was subsequently transferred to the recovery room in stable condition.
[2018-11-13] MEDS ORDERED: Naloxone 0.4 MG/ML SDV IVPUSH PRN (11:24)
[2018-11-13] MEDS ORDERED: Lanolin 100% Cream 7 GM Tube TOP PRN (11:24)
[2018-11-13] MEDS ORDERED: Dextrose 5%-Lactated Ringers 1,000 ML IV SCH (11:24)
[2018-11-13] MEDS ORDERED: ePHEDrine 50 MG/ML SDV IVPUSH PRN (11:24)
[2018-11-13] MEDS: Acetaminophen/oxyCODONE 325-5 MG Tab PO PRN ×2 (14:15→20:56)
[2018-11-13] MEDS: Ketorolac 30 MG/ML SDV IVPUSH SCH ×2 (15:32→20:58)
[2018-11-13] MEDS: Docusate Sodium 100 MG Cap PO PRN (20:55)
[2018-11-14] MEDS: Ketorolac 30 MG/ML SDV IVPUSH SCH (03:28)
[2018-11-14] MEDS: Acetaminophen/oxyCODONE 325-5 MG Tab PO PRN ×3 (03:36→20:16)
[2018-11-14] MEDS: Simethicone 80 MG Tab.Chew PO PRN ×3 (03:40→20:15)
--- NOTE | 2018-11-14 07:44 | PCM.PNPP ---
- General Info Date of Service: 11/14/18 Subjective Update: POD1 s/p repeat section. No complaints other than some fatigue with the pain medication. Functional Status: Reports: Pain Controlled - Review of Systems General: Reports: Fatigue HEENT: Reports: No Symptoms Pulmonary: Reports: No Symptoms Cardiovascular: Reports: No Symptoms Gastrointestinal: Reports: No Symptoms Genitourinary: Reports: No Symptoms Musculoskeletal: Reports: No Symptoms Skin: Reports: No Symptoms Neurological: Reports: No Symptoms Psychiatric: Reports: No Symptoms - General Info Date of Service: 11/14/18 - Patient Data Vital Signs - Most Recent: Last Vital Signs Temp 36.8 C 11/14/18 03:25 Pulse 80 11/14/18 03:25 Resp 16 11/14/18 03:25 BP 126/72 11/14/18 03:25 Pulse Ox 96 11/14/18 03:25 Weight - Most Recent: 130.181 kg I&O - Last 24 Hours: Intake & Output 11/13/18 11/14/18 11/14/18 22:59 06:59 14:59 Intake Total 320 975 Output Total 400 Balance -80 975 Lab Results - Last 24 Hours: Laboratory Results - last 24 hr 11/13/18 11/13/18 11/14/18 Range/Units 06:30 06:30 06:18 WBC 8.88 (3.98-10.04) K/mm3 RBC 3.64 L (3.98-5.22) M/mm3 Hgb 10.3 L (11.2-15.7) gm/L Hct 32.7 L (34.1-44.9) % MCV 89.8 (79.4-94.8) fl MCH 28.3 (25.6-32.2) pg MCHC 31.5 L (32.2-35.5) g/dl RDW Std Deviation 43.0 (36.4-46.3) fL Plt Count 280 (182-369) K/mm3 MPV 8.9 L (9.4-12.3) fl Neut % (Auto) 75.3 H (34.0-71.1) % Lymph % (Auto) 13.4 L (19.3-51.7) % Coffey % (Auto) 9.6 (4.7-12.5) % Eos % (Auto) 1.4 (0.7-5.8) Baso % (Auto) 0.1 (0.1-1.2) % Neut # (Auto) 6.69 H (1.56-6.13) K/mm3 Lymph # (Auto) 1.19 (1.18-3.74) K/mm3 Coffey # (Auto) 0.85 H (0.24-0.36) K/mm3 Eos # (Auto) 0.12 (0.04-0.36) K/mm3 Baso # (Auto) 0.01 (0.01-0.08) K/mm3 RPR Non-reactive (NONREACTIVE) Blood Type O POSITIVE Gel Antibody Screen Negative Med Orders - Current: Current Medications Diphenhydramine HCl (Benadryl) 25 mg IVPUSH Q6H PRN PRN Reason: Itching or Nausea Docusate Sodium (Colace) 100 mg PO Q12H PRN PRN Reason: Constipation Last Admin: 11/13/18 20:55 Dose: 100 mg Emollient Ointment (Lansinoh Hpa) 0 gm TOP ASDIRECTED PRN PRN Reason: Sore Nipples Ephedrine Sulfate (Ephedrine Sulfate) 5 mg IVPUSH SEECOMMENT PRN PRN Reason: Other Ibuprofen (Motrin) 600 mg PO Q6H PRN PRN Reason: mild pain or fever Naloxone HCl (Narcan) 0.1 mg IVPUSH SEECOMMENT PRN PRN Reason: Respiratory Depression Oxycodone/Acetaminophen (Percocet 325-5 Mg) 2 tab PO Q6H PRN PRN Reason: Pain (moderate 4-6) Last Admin: 11/14/18 03:36 Dose: 2 tab Simethicone (Simethicone) 160 mg PO QID PRN PRN Reason: Gas Last Admin: 11/14/18 03:40 Dose: 160 mg Discontinued Medications Bupivacaine HCl (Marcaine 0.5%) Confirm Administered Dose 30 ml .ROUTE .STK-MED ONE Stop: 11/13/18 07:16 Last Admin: 11/13/18 08:53 Dose: 20 ml Cefazolin Sodium (Ancef) Confirm Administered Dose 3 gm .ROUTE .STK-MED ONE Stop: 11/13/18 08:11 Citric Acid/Sodium Citrate (Bicitra Solution) 30 ml PO ONETIME ONE Stop: 11/13/18 06:20 Last Admin: 11/13/18 07:16 Dose: 30 ml Diphenhydramine HCl (Benadryl) 25 mg IVPUSH Q6H PRN PRN Reason: itching Ephedrine Sulfate (Ephedrine In Ns) Confirm Administered Dose 25 mg .ROUTE .[facility] ONE Stop: 11/13/18 09:14 Cefazolin Sodium/Dextrose 1 gm (/ Premix) 50 mls @ 100 mls/hr IV ONETIME ONE Stop: 11/13/18 06:48 Last Admin: 11/13/18 12:05 Dose: Not Given Cefazolin Sodium/Dextrose 2 gm (/ Premix) 50 mls @ 100 mls/hr IV ONETIME ONE Stop: 11/13/18 06:48 Last Admin: 11/13/18 12:06 Dose: Not Given Lactated Ringer's (Ringers, Lactated) 1,000 mls @ 125 mls/hr IV ASDIRECTED [facility] Last Admin: 11/13/18 06:59 Dose: 125 mls/hr Oxytocin/Lactated Ringer's (Pitocin In Lr 10 Units/1,000 Ml) 10 unit in 1,000 mls @ 100 mls/hr IV ASDIRECTED [facility] Lactated Ringer's (Ringers, Lactated) Confirm Administered Dose 1,000 mls @ as directed .ROUTE .[facility] ONE Stop: 11/13/18 08:50 Lactated Ringer's (Ringers, Lactated) Confirm Administered Dose 1,000 mls @ as directed .ROUTE .[facility] ONE Stop: 11/13/18 08:50 Dextrose/Lactated Ringer's (Dextrose 5%-Lactated Ringers) 1,000 mls @ 125 mls/ hr IV ASDIRECTED [facility] Stop: 11/13/18 19:23 Last Admin: 11/13/18 14:18 Dose: 125 mls/hr Ketorolac Tromethamine (Toradol) Confirm Administered Dose 30 mg .ROUTE .[facility] ONE Stop: 11/13/18 08:50 Ketorolac Tromethamine (Toradol) 30 mg IVPUSH Q6H [facility] Stop: 11/14/18 03:01 Last Admin: 11/14/18 03:28 Dose: 30 mg Metoclopramide HCl (Reglan) 10 mg IVPUSH ONETIME ONE Stop: 11/13/18 06:20 Last Admin: 11/13/18 07:16 Dose: 10 mg Nalbuphine HCl (Nubain) 10 mg IVPUSH Q2H PRN PRN Reason: Pain Ondansetron HCl (Zofran) Confirm Administered Dose 4 mg .ROUTE .STK-MED ONE Stop: 11/13/18 08:50 Ondansetron HCl (Zofran) 4 mg IVPUSH ONETIME PRN PRN Reason: Nausea/Vomiting Phenylephrine HCl (Phenylephrine In Ns 100 Mcg/Ml) Confirm Administered Dose 1 mg .ROUTE .STK-MED ONE Stop: 11/13/18 08:36 Phenylephrine HCl (Phenylephrine In Ns 100 Mcg/Ml) Confirm Administered Dose 1 mg .ROUTE .STK-MED ONE Stop: 11/13/18 08:50 Sodium Chloride (Saline Flush) 10 ml FLUSH ASDIRECTED PRN PRN Reason: Keep Vein Open - Interaction Disposition, : in Room with Family Interaction: Holding Feeding: Breastfed ; Nursed Well (somewhat sleepy) Support Person: - Recovery Exam Fundal Tone: Firm Fundal Level: 1 Fingerbreadths Below Umbilicus Fundal Placement: Midline Lochia Amount: Small Lochia Color: Rubra/Red Perineum Description: Intact, Minimal Bruising/Swelling Episiotomy/Laceration: None Bladder Status: Indwelling Catheter in Place Urinary Elimination: Other (see below) Other Urinary Elimination, : catheter removed as charted - Exam General: Alert, Oriented HEENT: Pupils Equal Neck: Supple Lungs: Normal Respiratory Effort GI/Abdominal Exam: Normal Bowel Sounds, Soft, Non-Tender, Other (dressing on) Extremities: Normal Inspection, Normal Range of Motion, Non-Tender, No Pedal Edema, Normal Capillary Refill Skin: Warm, Dry, Intact Wound/Incisions: Healing Well, Dressing Dry and Intact Neurological: No New Focal Deficit Psy/Mental Status: Alert, Normal Affect, Normal Mood - Problem List Review Problem List Initiated/Reviewed/Updated: Yes - My Orders Last 24 Hours: My Active Orders 11/13/18 11:24 Communication Order [RC] PER UNIT ROUTINE Communication Order [RC] PER UNIT ROUTINE Notify Provider Intake and Out [RC] ASDIRECTED Vital Signs [RC] Q4HR Acetaminophen/oxyCODONE [Percocet 325-5 MG] 2 tab PO Q6H PRN Docusate Sodium [Colace] 100 mg PO Q12H PRN Lanolin [Lansinoh HPA] See Dose Instructions TOP ASDIRECTED PRN Naloxone [Narcan] 0.1 mg IVPUSH SEECOMMENT PRN diphenhydrAMINE [Benadryl] 25 mg IVPUSH Q6H PRN ePHEDrine [ePHEDrine sulfate] 5 mg IVPUSH SEECOMMENT PRN Assess Lochia [WOMSER] Per Unit Routine Assess Uterine Involution [WOMSER] Per Unit Routine Medication Administration Instruction [OM.PC] Routine 11/13/18 Dinner Regular Diet [DIET] 11/14/18 03:25 Simethicone 160 mg PO QID PRN 11/14/18 09:00 Ibuprofen [Motrin] 600 mg PO Q6H PRN - Assessment Assessment:: POD1 doing well. Likely home tomorrow Routine cares -support -IV out today -eating and drinking well
--- NOTE | 2018-11-14 09:29 | PCM48HPAN ---
Post Anesthesia Note - EVALUATION WITHIN 48HRS OF ANESTHETIC Vital Signs in Normal Range: Yes Patient Participated in Evaluation: Yes Respiratory Function Stable: Yes Airway Patent: Yes Cardiovascular Function Stable: Yes Hydration Status Stable: Yes Pain Control Satisfactory: Yes Nausea and Vomiting Control Satisfactory: Yes Mental Status Recovered: Yes Vital Signs: Last Vital Signs Temp 36.8 C 11/14/18 03:25 Pulse 80 11/14/18 03:25 Resp 16 11/14/18 03:25 BP 126/72 11/14/18 03:25 Pulse Ox 96 11/14/18 03:25
[2018-11-14] MEDS: Ibuprofen 600 MG Tab PO PRN ×2 (12:09→18:23)
[2018-11-14] MEDS: Docusate Sodium 100 MG Cap PO PRN ×2 (12:13→20:15)
[2018-11-15] MEDS: Ibuprofen 600 MG Tab PO PRN ×2 (03:48→09:51)
[2018-11-15] MEDS: Acetaminophen/oxyCODONE 325-5 MG Tab PO PRN ×2 (03:49→09:50)
--- NOTE | 2018-11-15 07:29 | PCM.DCSUM1 ---
Discharge Summary - Hospital Course HPI Initial Comments: Admitted for repeat which was uncomplicated. Routine care. Diagnosis: Stroke: No - Discharge Data Discharge Date: 11/15/18 Discharge Disposition: Home, Self-Care 01 Condition: Good - Patient Summary/Data Operative Procedure(s) Performed: Repeat section - Patient Instructions Diet: Usual Diet as Tolerated Activity: No Strenuous Activities Driving: May Drive Today Showering/Bathing: May Shower Notify Provider of: Fever, Increased Pain, Swelling and Redness, Drainage, Nausea and/or Vomiting - Discharge Plan *PRESCRIPTION DRUG MONITORING PROGRAM REVIEWED*: No *COPY OF PRESCRIPTION DRUG MONITORING REPORT IN PATIENT KEV: No Home Medications: Home Meds B12/Levomefolate Calcium/B-6 [Folbic Rf Tablet] 1 each PO DAILY 07/05/16 [ History] Cholecalciferol (Vitamin D3) [Vitamin D] 10,000 unit PO DAILY 07/05/16 [History] Mv-Mn/Iron/FA/Herbal/Digestive [ One Tablet] 1 each PO DAILY 07/05/16 [ History] Ibuprofen [IJD: Ibuprofen] 600 mg PO Q6H #50 tablet 07/07/16 [Rx] Referrals: Christine Main MD [Primary Care Provider] - (2-3 weeks) - Discharge Summary/Plan Comment DC Time >30 min.: No - General Info Date of Service: 11/15/18 Functional Status: Reports: Pain Controlled - Review of Systems General: Reports: No Symptoms HEENT: Reports: No Symptoms Pulmonary: Reports: No Symptoms Cardiovascular: Reports: No Symptoms Gastrointestinal: Reports: No Symptoms Genitourinary: Reports: No Symptoms Musculoskeletal: Reports: No Symptoms Skin: Reports: No Symptoms Neurological: Reports: No Symptoms Psychiatric: Reports: No Symptoms - Patient Data Vitals - Most Recent: Last Vital Signs Temp 36.8 C 11/15/18 03:40 Pulse 86 11/15/18 03:40 Resp 16 11/15/18 03:40 BP 122/65 11/15/18 03:40 Pulse Ox 96 11/15/18 03:40 Weight - Most Recent: 130.181 kg Med Orders - Current: Current Medications Diphenhydramine HCl (Benadryl) 25 mg IVPUSH Q6H PRN PRN Reason: Itching or Nausea Docusate Sodium (Colace) 100 mg PO Q12H PRN PRN Reason: Constipation Last Admin: 11/14/18 20:15 Dose: 100 mg Emollient Ointment (Lansinoh Hpa) 0 gm TOP ASDIRECTED PRN PRN Reason: Sore Nipples Ephedrine Sulfate (Ephedrine Sulfate) 5 mg IVPUSH SEECOMMENT PRN PRN Reason: Other Ibuprofen (Motrin) 600 mg PO Q6H PRN PRN Reason: mild pain or fever Last Admin: 11/15/18 03:48 Dose: 600 mg Naloxone HCl (Narcan) 0.1 mg IVPUSH SEECOMMENT PRN PRN Reason: Respiratory Depression Oxycodone/Acetaminophen (Percocet 325-5 Mg) 2 tab PO Q6H PRN PRN Reason: Pain (moderate 4-6) Last Admin: 11/15/18 03:49 Dose: 2 tab Simethicone (Simethicone) 160 mg PO QID PRN PRN Reason: Gas Last Admin: 11/14/18 20:15 Dose: 160 mg Discontinued Medications Bupivacaine HCl (Marcaine 0.5%) Confirm Administered Dose 30 ml .ROUTE .STK-MED ONE Stop: 11/13/18 07:16 Last Admin: 11/13/18 08:53 Dose: 20 ml Cefazolin Sodium (Ancef) Confirm Administered Dose 3 gm .ROUTE .STK-MED ONE Stop: 11/13/18 08:11 Citric Acid/Sodium Citrate (Bicitra Solution) 30 ml PO ONETIME ONE Stop: 11/13/18 06:20 Last Admin: 11/13/18 07:16 Dose: 30 ml Diphenhydramine HCl (Benadryl) 25 mg IVPUSH Q6H PRN PRN Reason: itching Ephedrine Sulfate (Ephedrine In Ns) Confirm Administered Dose 25 mg .ROUTE .STK- MED ONE Stop: 11/13/18 09:14 Cefazolin Sodium/Dextrose 1 gm (/ Premix) 50 mls @ 100 mls/hr IV ONETIME ONE Stop: 11/13/18 06:48 Last Admin: 11/13/18 12:05 Dose: Not Given Cefazolin Sodium/Dextrose 2 gm (/ Premix) 50 mls @ 100 mls/hr IV ONETIME ONE Stop: 11/13/18 06:48 Last Admin: 11/13/18 12:06 Dose: Not Given Lactated Ringer's (Ringers, Lactated) 1,000 mls @ 125 mls/hr IV ASDIRECTED [facility] Last Admin: 11/13/18 06:59 Dose: 125 mls/hr Oxytocin/Lactated Ringer's (Pitocin In Lr 10 Units/1,000 Ml) 10 unit in 1,000 mls @ 100 mls/hr IV ASDIRECTED [facility] Lactated Ringer's (Ringers, Lactated) Confirm Administered Dose 1,000 mls @ as directed .ROUTE .STK-MED ONE Stop: 11/13/18 08:50 Lactated Ringer's (Ringers, Lactated) Confirm Administered Dose 1,000 mls @ as directed .ROUTE .STK-MED ONE Stop: 11/13/18 08:50 Dextrose/Lactated Ringer's (Dextrose 5%-Lactated Ringers) 1,000 mls @ 125 mls/ hr IV ASDIRECTED [facility] Stop: 11/13/18 19:23 Last Admin: 11/13/18 14:18 Dose: 125 mls/hr Ketorolac Tromethamine (Toradol) Confirm Administered Dose 30 mg .ROUTE .STK- MED ONE Stop: 11/13/18 08:50 Ketorolac Tromethamine (Toradol) 30 mg IVPUSH Q6H [facility] Stop: 11/14/18 03:01 Last Admin: 11/14/18 03:28 Dose: 30 mg Metoclopramide HCl (Reglan) 10 mg IVPUSH ONETIME ONE Stop: 11/13/18 06:20 Last Admin: 11/13/18 07:16 Dose: 10 mg Nalbuphine HCl (Nubain) 10 mg IVPUSH Q2H PRN PRN Reason: Pain Ondansetron HCl (Zofran) Confirm Administered Dose 4 mg .ROUTE .STK-MED ONE Stop: 11/13/18 08:50 Ondansetron HCl (Zofran) 4 mg IVPUSH ONETIME PRN PRN Reason: Nausea/Vomiting Phenylephrine HCl (Phenylephrine In Ns 100 Mcg/Ml) Confirm Administered Dose 1 mg .ROUTE .STK-MED ONE Stop: 11/13/18 08:36 Phenylephrine HCl (Phenylephrine In Ns 100 Mcg/Ml) Confirm Administered Dose 1 mg .ROUTE .STK-MED ONE Stop: 11/13/18 08:50 Sodium Chloride (Saline Flush) 10 ml FLUSH ASDIRECTED PRN PRN Reason: Keep Vein Open - Exam General: Reports: Alert, Oriented HEENT: Reports: Pupils Equal, Pupils Reactive, EOMI, Mucous Membr. Moist/[place] Neck: Reports: Supple Lungs: Reports: Clear to Auscultation, Normal Respiratory Effort Cardiovascular: Reports: Regular Rate, Regular Rhythm GI/Abdominal Exam: Normal Bowel Sounds, Soft, Non-Tender, No Organomegaly, No Distention, No Abnormal Bruit Rectal (Female) Exam: Normal Exam, Normal Rectal Tone Back Exam: Reports: Normal Inspection, Full Range of Motion Extremities: Normal Inspection, Normal Range of Motion, Non-Tender, No Pedal Edema, Normal Capillary Refill Skin: Reports: Warm, Dry, Intact Wound/Incisions: Reports: Healing Well Neurological: Reports: No New Focal Deficit Psy/Mental Status: Reports: Alert, Normal Affect, Normal Mood
[2018-11-15 09:28] VITALS: BP 125/73
== END 2018-11-15 10:20 | disposition home or self-care (01) | DRG 540 ==
LOC: JD.OB 05:27
PROVIDERS: ADMIT Obstetrics & Gynecology; ATTEND Obstetrics & Gynecology
PROC: 10D00Z1 Extraction of Products of Conception, Low, Open Approach (ICD-10-PCS; principal; 2018-11-13)
DX: O34.211 Maternal care for low transverse scar from previous cesarean delivery (principal); E03.9 Hypothyroidism, unspecified; O99.284 Endocrine, nutritional and metabolic diseases complicating childbirth; E66.9 Obesity, unspecified; O99.214 Obesity complicating childbirth; Z3A.39 39 weeks gestation of pregnancy; Z37.0 Single live birth
CPT/HCPCS: 01961; 36415; 59025; 85025; 86592; 86850; 86900; 86901; A9270-GY; J0690; J1885; J2370; J2405; J2765; J3490; J7042; J7050; J7120